=== PATIENT | female | born 1975 | race Caucasian/White ===

== ENCOUNTER 2022-08-07 22:52 | Outpatient (CLI) | payer OTHER, SELFPAY | END 2022-08-07 22:53 | disposition home or self-care (01) | LOC: AMB 08-10 11:18 | PROVIDERS: Visit Provider Family Medicine | DX: R45.851 Suicidal ideations (principal) | CPT/HCPCS: A0425; A0433 ==

== ENCOUNTER 2022-10-27 16:35 | Emergency (ER) | payer OTHER, SELFPAY ==
[2022-10-27 16:40] VITALS: BP 155/80; PULSE 59; RESP 22; TEMP 36.6; O2SAT 100; BMI 22.3
--- NOTE | 2022-10-27 17:02 | CRLHL7_ITS ---
For Patients: As a result of the Century Cures Act, medical imaging exams and procedure reports are released immediately into your electronic medical record. You may view this report before your referring provider. If you have questions, please contact your health care provider. INDICATION: RLQ PAIN. TECHNIQUE: CT abdomen and pelvis acquired with 58 cc Isovue 370 IV contrast. COMPARISON: None. FINDINGS: Lower chest: Unremarkable. Liver: Unremarkable. Normal in size and attenuation. No suspicious masses. Gallbladder and bile ducts: Unremarkable. No stones or inflammation. No biliary dilatation. Pancreas: Subtle hypodensity near the head of the pancreas, nonspecific (6/34; 2/38).. Spleen: Unremarkable. Normal in size. No masses. Adrenal glands: Unremarkable. No nodules. Kidneys: Unremarkable. No suspicious masses, stones, or hydronephrosis. GI tract: Unremarkable. Normal in caliber. No sign of mass or inflammation. Normal appendix. Vasculature: Abdominal aorta is normal in caliber. Mesenteric arteries are patent. Lymph nodes: No lymphadenopathy. Peritoneum/Abdominal Wall: Small fluid within the pelvis, nonspecific. No intra-abdominal free air. Pelvis: Status post hysterectomy. Bones: Unremarkable for age. IMPRESSION: No acute intra-abdominal process identified. Trace fluid in the pelvis, nonspecific. Subtle hypodensity near the head of the pancreas. Recommend further evaluation with nonemergent abdominal MRI, pancreas protocol. Please note that all CT scans at this facility use dose modulation, iterative reconstruction, and/or weight-based dosing when appropriate to reduce radiation dose to as low as reasonably achievable. Dictated by Julio Cesar Suazo MD @ 10/27/2022 8:06:18 PM ----- ADDENDUM ----- Addendum: Upon secondary review, there is a 6 mm stone at the mid to distal right ureter with minimal upstream hydroureter and hydronephrosis. Dictated by Julio Cesar Suazo MD @ Nov 01 2022 7:12PM (Electronically Signed)
--- NOTE | 2022-10-27 17:03 | ED.ABDPAIN ---
HPI - Abdominal Pain General Chief Complaint: Abdominal Pain Stated Complaint: Lower R abdominal pain Time Seen by Provider: 10/27/22 16:41 History of Present Illness HPI narrative: This 47-year-old female comes in reporting right lower quadrant abdominal pain for the past 3 days. She states that it is a constant pain but there are some episodes where it gets more intense. She has not had any fevers, nausea, vomiting, or loss of appetite. She wondered if she might be constipated so she took a stool laxative and has had 3 episodes of diarrhea since then. Related Data Home Medications Medication Instructions Recorded Confirmed bupropion HCl 150 mg 24 hr tablet, 150 mg PO QAM 10/27/22 10/27/22 extended release trazodone 100 mg tablet 200 mg PO QPM PRN 10/27/22 10/27/22 Allergies Allergy/AdvReac Type Severity Reaction Status Date / Time cyclobenzaprine Allergy Intermediate Muscle Verified 10/27/22 16:25 [From Flexeril] twitching oxycodone Allergy Mild Itchy skin Verified 10/27/22 16:25 Review of Systems Status of ROS Reports: 10 or more systems reviewed and unremarkable except as noted in History and below Narrative Constitutional: No fevers, no weight gain or loss. Eyes: No discharge. No vision changes. HENT: No congestion, no sore throat, no ear pain. Cardiovascular: No chest pain, no palpitations. Respiratory: No shortness of breath, no wheezes, no cough. Gastrointestinal: No vomiting, no diarrhea. Right lower quadrant abdominal pain as described above. Genitourinary: No dysuria, no hematuria. Musculoskeletal: Normal range of motion. Skin: No rashes, no pruritis. Neurological: No dizziness, weakness, sensory change, speech change. Endo/Heme/Allergies: No bruising or bleeding. No polydipsia. Pysch: no suicidality, no anxiety, no insomnia. All other systems reviewed and are negative. PFSH PFSH Social History Smoking Status: Never smoker Do you use any of these nicotine containing products: None How often do you have a drink containing alcohol: monthly or less How often do you have six or more drinks on one occasion: Never AUDIT-C Alcohol total score: 1 Non-prescribed substance use: denies use service: No Exam Narrative: Exam Narrative: Constitutional: Well-developed, well-nourished, no acute distress. HEENT: Normocephalic, atraumatic. Neck: Normal range of motion. Nontender. Supple. Heart: Regular. No murmurs. Normal rate. Intact distal pulses. Lungs: Clear to auscultation. No chest discomfort. No wheezes, rhonchi, or rales. Abdomen: Normal bowel sounds. Tenderness at McBurney's point in the right lower quadrant. Rovsing sign is positive. There is some rebound tenderness. Genitalia: Deferred. Back: No midline tenderness. Normal range of motion. Extremities: Normal range of motion. No injury. Skin: Intact. No rash. Warm. No erythema or pallor. Neurologic: No altered sensation. No weakness. Alert and oriented. Psychiatric: No suicidality. No anxiety or depression. No insomnia. Nursing notes and vitals signs are reviewed. Const: Vital Signs, click to edit/add: Vital Signs - 24 hr 10/27/22 16:40 10/27/22 18:55 Temperature 97.8 F Pulse Rate [Right Pulse Oximeter] 59 L 65 Respiratory Rate 22 Blood Pressure [Ri ght Upper Arm] 155/80 H 131/84 Pulse Oximetry 100 100 Oxygen Delivery Me thod Room Air Room Air Course Vital Signs Vital signs: Initial Vital Signs Temperature 97.8 F 10/27/22 16:40 Temperature Source Temporal Artery Scan 10/27/22 16:40 Pulse Rate 59 L 10/27/22 16:40 Pulse Rhythm Regular 10/27/22 16:40 Respiratory Rate 22 10/27/22 16:40 Blood Pressure 155/80 H 10/27/22 16:40 Blood Pressure Mean 105 10/27/22 16:40 Pulse Oximetry 100 10/27/22 16:40 Oxygen Delivery Method Room Air 10/27/22 16:40 Vital Signs Temperature 97.8 F 10/27/22 16:40 Pulse Rate 59 L 10/27/22 16:40 Respiratory Rate 22 10/27/22 16:40 Blood Pressure 155/80 H 10/27/22 16:40 Pulse Oximetry 100 10/27/22 16:40 Oxygen Delivery Method Room Air 10/27/22 16:40 Temperature 97.8 F 10/27/22 16:40 Pulse Rate 65 10/27/22 18:55 Respiratory Rate 22 10/27/22 18:55 Blood Pressure 131/84 10/27/22 18:55 Pulse Oximetry 100 10/27/22 18:55 Oxygen Delivery Method Room Air 10/27/22 18:55 MDM - Abdominal Pain MDM Narrative Medical decision making narrative: This 47-year-old female comes in reporting pain in her right lower quadrant over these past 3 days. She states that the pain comes and goes and at times becomes very intense but never completely goes away. An IV was established where labs were drawn and contrast was administered for a CT scan of the abdomen and pelvis. CT images returned with no acute findings to explain the patient's pain. Additionally lab results are all within normal limits. I did describe various causes for abdominal pain that would not be identified on CT imaging or with lab results. She states that she has had an ovarian cyst long time in the past. There is no sign of ovarian cyst today but there is some free fluid in the cul-de-sac but this could be normal physiologic levels. This patient is okay to return home. She did receive IV doses of Dilaudid 0.5 mg and Zofran 4 mg. Prescriptions are provided also for Toradol, Zofran, and a few tablets of [place]. She is advised to follow-up with her primary physician or OBGYN clinic or Gastroenterology Clinic if not improving or return if worsening. Lab Data Labs: Lab Results 10/27/22 Range/Units 17:23 WBC 4.59 (4.50-11.00) K/uL RBC 4.18 (4.00-5.20) m/uL Hgb 12.2 (12.0-16.0) gm/dL Hct 36.9 (33.0-51.0) % MCV 88 (80-100) fL MCH 29 (26-34) pg MCHC 33 (32-36) gm/dL RDW Coeff of Denny 12.7 (11.5-15.5) % Plt Count 190 (140-440) K/uL Neut % (Auto) 47.5 (42.0-72.0) % Lymph % (Auto) 41.2 (20-44) % [place] % (Auto) 9.4 (0.0-11.0) % Eos % (Auto) 1.5 (0.0-7.0) % Baso % (Auto) 0.4 (0.0-3.0) % Neut # (Auto) 2.18 (1.7-7.0) K/uL Lymph # (Auto) 1.89 (0.90-2.90) K/uL [place] # (Auto) 0.40 (0.00-0.90) K/UL Eos # (Auto) 0.07 (0.00-0.50) K/uL Baso # (Auto) 0.02 (0.00-0.30) K/uL Abs Immat Gran (auto) 0.00 (0.00-0.30) K/uL Imm/Tot Granulo (auto) 0.0 % Sodium 137 (135-149) mmol/L Potassium 4.2 (3.6-5.1) mmol/L Chloride 103 (96-114) mmol/L Carbon Dioxide 27 (20-32) mmol/L Anion Gap 7 (7-15) mEq/L BUN 16 (5-24) mg/dL Creatinine 0.8 (0.5-1.5) mg/dL Estimated Creat Clear 64.19 Estimated GFR 90 ml/min Glucose 70 (60-115) mg/dL Calcium 9.3 (8.4-10.6) mg/dL Imaging Data CT scan - abdomen: Radiologist's impression: No acute intra-abdominal process identified. Trace fluid in the pelvis, nonspecific. Subtle hypodensity near the head of the pancreas. Recommend further evaluation with nonemergent abdominal MRI, pancreas protocol. Discharge Plan Discharge Clinical Impression: Abdominal pain Patient Disposition: Home, Self-Care Condition: Stable Additional Instructions: Take medication as prescribed and needed. Follow-up with primary physician, OBGYN Clinic, or lasting floorworker if symptoms are persistent. Return if worsening. Prescriptions: No Action trazodone 100 mg tablet 200 mg PO QPM PRN bupropion HCl 150 mg tablet extended release 24 hr 150 mg PO QAM Follow Up/Referrals: Provider,Not a Local [Referring] - Stand Alone Forms: Taskmit Info Instructions
[2022-10-27 17:37] LABS: Basophils Absolute Auto 0.02 K/uL (0.00-0.30); Basophils Percent Auto 0.4 % (0.0-3.0); Eosinophils Absolute Auto 0.07 K/uL (0.00-0.50); Eosinophils Percent Auto 1.5 % (0.0-7.0); Hematocrit 36.9 % (33.0-51.0); Hemoglobin* 12.2 gm/dL (12.0-16.0); Lymphocytes Absolute Auto 1.89 K/uL (0.90-2.90); Lymphocytes Percent Auto 41.2 % (20-44); Mean Corpuscular HGB Conc 33 gm/dL (32-36); Mean Corpuscular Hemoglobin 29 pg (26-34); Mean Corpuscular Volume 88 fL (80-100); Monocytes Percent Auto 9.4 % (0.0-11.0); Neutrophils Absolute Auto 2.18 K/uL (1.7-7.0); Neutrophils Percent Auto 47.5 % (42.0-72.0); Platelet Count* 190 K/uL (140-440); RDW Coefficient of Variation % 12.7 % (11.5-15.5); Red Blood Count 4.18 m/uL (4.00-5.20); White Blood Count* 4.59 K/uL (4.50-11.00)
[2022-10-27 17:41] LABS: Slide Review Reflex No
[2022-10-27] MEDS: KETOROLAC 15 MG/ML inj IVP (17:50)
[2022-10-27 17:55] LABS: Chloride* 103 mmol/L (96-114); Potassium* 4.2 mmol/L (3.6-5.1); Sodium* 137 mmol/L (135-149)
[2022-10-27 17:58] LABS: Anion Gap 7 mEq/L (7-15); Blood Urea Nitrogen* 16 mg/dL (5-24); Carbon Dioxide* 27 mmol/L (20-32); Creatinine* 0.8 mg/dL (0.5-1.5); Est. Creatinine Clearance* 64.19; Estimated Glomerular Filt Rate 90 ml/min
[2022-10-27 17:59] LABS: Calcium* 9.3 mg/dL (8.4-10.6); Glucose* 70 mg/dL (60-115)
[2022-10-27 18:55] VITALS: BP 131/84; PULSE 65; RESP 22; O2SAT 100
--- NOTE | 2022-10-27 19:44 | ED.NURSE ---
Per pt pain is tolerable, says pain is still coming and going in waves.
--- NOTE | 2022-10-27 20:18 | ED.NURSE ---
Pt report given off to oncoming RN.
[2022-10-27] MEDS: HYDROmorphone 0.5 mg/0.5 ml inj IVP (20:47)
[2022-10-27] MEDS: ONDANSETRON 2 MG/ML inj 4 MG IVP (20:47)
[2022-10-27 21:10] VITALS: BP 122/76; PULSE 71; RESP 16; TEMP 36.6
== END 2022-10-27 21:10 | disposition home or self-care (01) ==
PROVIDERS: Emergency Provider Emergency Medicine Emergency Medical Services; PCP Physician Assistant
DX: R10.9 Unspecified abdominal pain (principal)
CPT/HCPCS: 36415; 74177; 80048; 85025; 96374; 96375; 99284; 99285; J1170; J1885; J2405; Q9967

== ENCOUNTER 2022-11-01 17:45 | Emergency (ER) | payer OTHER, SELFPAY ==
[2022-11-01 17:50] VITALS: BP 120/65; PULSE 66; RESP 18; TEMP 36.5; O2SAT 100; BMI 22.3
--- NOTE | 2022-11-01 18:04 | ED.ABDPAIN ---
HPI - Abdominal Pain General Time Seen by Provider: 18:04 Date Seen: 11/01/22 Chief Complaint: Abdominal Pain Stated Complaint: Lower abdomen pain Time Seen by Provider: 11/01/22 17:55 Source: patient, RN notes reviewed and old records reviewed Mode of arrival: ambulatory Limitations: no limitations History of Present Illness HPI narrative: Patient in on day 8 of RLQ abdominal pain. Pain is there constantly, starting to have shooting pain into groin into top of leg on right. Before would get some sharp jolts into right hip area laterally from the abdominal area where pain was. If pain severe, may feel some nausea. No vomiting, decreased appetite but eating doesn't increase symptoms. Did try clean out with Miralax and did not help, doesn't have any concerning changes with bowels at this time. Had appropriate loose stools 3 times with the Miralax. No fevers. No urinary symptoms. Has had ovarian cyst before. Saw GI this past Sunday, no EGD felt necessary as not any upper abd symptoms or reflux type symptoms. GI doctor ordered gallbladder US but isn't until next week. Pain does radiate over the left side too now at times. Has used OTC meds, norco for pain, toradol and zofran. Sleeping OK but notes that she uses trazodone to sleep. Had colonoscopy 2 years ago, wondering if that should be repeated but GI doctor didn't feel it needed to be at this point per patient. She reports that she has had urinary infections and kidney infections without symptoms before. She was in our ED on October 27, had normal blood work and CT at that time. Did review patient's blood work and CT imaging report from her last visit. She states she was not aware of the subtle density of the pancreas, did give her report to give to her primary care provider. Will make sure pancreatic enzymes are normal tonight but she really should have follow-up MRI pancreatic protocol. MD elicited complaint: abdominal pain Related Data Patient : No Home Medications Medication Instructions Recorded Confirmed bupropion HCl 150 mg 24 hr tablet, 150 mg PO QAM 10/27/22 10/27/22 extended release trazodone 100 mg tablet 200 mg PO QPM PRN 10/27/22 10/27/22 Previous Rx's Medication Instructions Recorded oxycodone 5 mg tablet 5 - 10 mg (1 - 2 x 5 mg) PO Q6H 11/01/22 PRN pain #20 tabs tamsulosin 0.4 mg capsule (Flomax) 0.4 mg PO DAILY #14 caps 11/01/22 Allergies Allergy/AdvReac Type Severity Reaction Status Date / Time cyclobenzaprine Allergy Intermediate Muscle Verified 10/27/22 16:25 [From Flexeril] twitching oxycodone Allergy Mild Itchy skin Verified 10/27/22 16:25 Review of Systems Status of ROS Reports: 6 or more systems reviewed and unremarkable except as noted in History and below [facility] Social History Smoking Status: Never smoker Do you use any of these nicotine containing products: None How often do you have a drink containing alcohol: monthly or less How often do you have six or more drinks on one occasion: Never AUDIT-C Alcohol total score: 1 Non-prescribed substance use: denies use service: No Exam Const: Vital Signs, click to edit/add: Vital Signs - 24 hr 11/01/22 17:50 Temperature 97.7 F Pulse Rate [Right Pulse Oximeter] 66 Respiratory Rate 18 Blood Pressure [Ri ght Upper Arm] 120/65 Pulse Oximetry 100 Oxygen Delivery Me thod Room Air Very pleasant 47-year-old female that is alert, interactive, no apparent distress. Slender build. Pupils equal round, conjugate gaze, sclera clear. Face atraumatic. Oropharynx mucosa no exudates erythema. TMs canals are normal. Neck is supple, no palpable masses, no thyromegaly masses or nodules. Sits up easily, lungs are clear with good air entry, no wheezing or crackles, no accessory muscle use. CV regular rate and rhythm, no murmur, normal S1 and S2. Abdomen is flat, not distended. Bowel sounds are active but not concerning. There is no organomegaly or masses noted. She feels pain in the right lower quadrant when I palpate in the right mid abdomen and the left lower quadrant. She is tender in the right lower quadrant without any palpable mass. She just slough lightly above the pelvic area just over from the iliac crest where the pain is the worst. She really does not have rebound or guarding with this though. No lower extremity edema, skin visualized without rash. Patient is ambulatory in the ED of her own accord. Documenting provider has reviewed patient's vital signs: yes Course Course ED Course: Reviewed with patient that she really absolutely is not tender over the gallbladder right upper quadrant with the gallbladder is. She is tender in her right lower quadrant, she has been evaluated in the ER before and had a negative CT. Do think that I would do a pelvic ultrasound to assess the ovaries and pelvic structures which are better imaged with ultrasound and CT. We will redo a full complement of labs, will obtain urinalysis. She states urinalysis is not been done yet. Reevaluation(s) Time of Reevaluation #1: 19:24 Reevaluation #1: Below is the addended CT report which shows kidney stone. Patient: EMILY SANDRA Facility:?[facility] Patient ID:?[id number] Site Patient ID:?[id number]. Site :?[id number] Study:?CT-Abdomen/Pelvis W ISOVUE 370-10/27/2022 6:49:36 PM Ordering Physician:?Denny Nichols Final Report: INDICATION: RLQ PAIN. TECHNIQUE: CT abdomen and pelvis acquired with 58 cc Isovue 370 IV contrast. COMPARISON: None. FINDINGS: Lower chest: Unremarkable. Liver: Unremarkable. Normal in size and attenuation. No suspicious masses. Gallbladder and bile ducts: Unremarkable. No stones or inflammation. No biliary dilatation. Pancreas: Subtle hypodensity near the head of the pancreas, nonspecific (6/34; 2/38).. Spleen: Unremarkable. Normal in size. No masses. Adrenal glands: Unremarkable. No nodules. Kidneys: Unremarkable. No suspicious masses, stones, or hydronephrosis. GI tract: Unremarkable. Normal in caliber. No sign of mass or inflammation. Normal appendix. Vasculature: Abdominal aorta is normal in caliber. Mesenteric arteries are patent. Lymph nodes: No lymphadenopathy. Peritoneum/Abdominal Wall: Small fluid within the pelvis, nonspecific. No intra-abdominal free air. Pelvis: Status post hysterectomy. Bones: Unremarkable for age. IMPRESSION: No acute intra-abdominal process identified. Trace fluid in the pelvis, nonspecific. Subtle hypodensity near the head of the pancreas. Recommend further evaluation with nonemergent abdominal MRI, pancreas protocol. Please note that all CT scans at this facility use dose modulation, iterative reconstruction, and/or weight-based dosing when appropriate to reduce radiation dose to as low as reasonably achievable. Dictated by Julio Cesar Suazo MD @ 10/27/2022 8:06:18 PM ----- ADDENDUM ----- Addendum: Upon secondary review, there is a 6 mm stone at the mid to distal right ureter with minimal upstream hydroureter and hydronephrosis. Dictated by Julio Cesar Suazo MD @ Nov 01 2022 7:12PM Signed by:?Julio Cesar Suazo MD @10/27/2022 8:06:18 PM (Electronic Signature) Patient is provided the information that there is a kidney stone. Will try to talk to Urology on patient's behalf so she can get a follow-up. Will give her a dose of Flomax now. Reviewed with her that literature supports about 60% passage of stones in the 4-6 mm range. Time of Reevaluation #2: 20:09 Reevaluation #2: Have reviewed conversation with urology with Emily. Will make sure she has a disc to take to the appointment. Her pain has not been very well controlled with 1 single oxycodone. She does get some occasional itching but no rash. Reviewed with her that she could try Claritin or Zyrtec to block the histamine reaction while on this. I am going to give her 2 oxycodone now. Will send in another prescription for her to try to get her through to her urology appointment. She has talked to her sister in the interim, her sister reminded her that her mom had kidney stones. Consultations Consultation #1: Preliminary report from the community services manager is that the ovaries and pelvic ultrasound is looking normal. We did pull up her CT from October 27, visualize the images. I do think I see a large stone that potentially is in the right lower quadrant that may explain her pain. Interestingly her urine showed 10-25 red cells and is not infected. When the community services manager came into let me know that the pelvic imaging looked normal, she and I did look at the CT together. She is going to contact [facility] and have the CT from October 27 re-evaluated. Time: 19:07 Consultation #2: Spoke with Dr. Velazquez in Urology, on-call for [place]. He took the patient's information on her phone number, he will have someone contact her for outpatient urology follow-up tomorrow. Time: 20:04 Vital Signs Vital signs: Initial Vital Signs Temperature 97.7 F 11/01/22 17:50 Temperature Source Temporal Artery Scan 11/01/22 17:50 Pulse Rate 66 11/01/22 17:50 Respiratory Rate 18 11/01/22 17:50 Blood Pressure 120/65 11/01/22 17:50 Blood Pressure Mean 83 11/01/22 17:50 Blood Pressure Position Sitting 11/01/22 17:50 Pulse Oximetry 100 11/01/22 17:50 Oxygen Delivery Method Room Air 11/01/22 17:50 Vital Signs Temperature 97.7 F 11/01/22 17:50 Pulse Rate 66 11/01/22 17:50 Respiratory Rate 18 11/01/22 17:50 Blood Pressure 120/65 11/01/22 17:50 Pulse Oximetry 100 11/01/22 17:50 Oxygen Delivery Method Room Air 11/01/22 17:50 Temperature 97.7 F 11/01/22 17:50 Pulse Rate 66 11/01/22 17:50 Respiratory Rate 18 11/01/22 17:50 Blood Pressure 120/65 11/01/22 17:50 Pulse Oximetry 100 11/01/22 17:50 Oxygen Delivery Method Room Air 11/01/22 17:50 MDM - Abdominal Pain Lab Data Attestation: I reviewed the patient's lab results. Labs: Lab Results 11/01/22 11/01/22 11/01/22 Range/Units 18:30 18:30 18:30 WBC 5.86 (4.50-11.00) K/uL RBC 4.64 (4.00-5.20) m/uL Hgb 13.8 (12.0-16.0) gm/dL Hct 40.6 (33.0-51.0) % MCV 88 (80-100) fL MCH 30 (26-34) pg MCHC 34 (32-36) gm/dL RDW Coeff of Denny 12.9 (11.5-15.5) % Plt Count 214 (140-440) K/uL Neut % (Auto) 52.0 (42.0-72.0) % Lymph % (Auto) 37.9 (20-44) % [place] % (Auto) 8.4 (0.0-11.0) % Eos % (Auto) 1.2 (0.0-7.0) % Baso % (Auto) 0.3 (0.0-3.0) % Neut # (Auto) 3.05 (1.7-7.0) K/uL Lymph # (Auto) 2.22 (0.90-2.90) K/uL [place] # (Auto) 0.50 (0.00-0.90) K/UL Eos # (Auto) 0.07 (0.00-0.50) K/uL Baso # (Auto) 0.02 (0.00-0.30) K/uL Abs Immat Gran (auto) 0.01 (0.00-0.30) K/uL Imm/Tot Granulo (auto) 0.2 % Sodium 137 (135-149) mmol/L Potassium 4.6 (3.6-5.1) mmol/L Chloride 101 (96-114) mmol/L Carbon Dioxide 27 (20-32) mmol/L Anion Gap 9 (7-15) mEq/L BUN 18 (5-24) mg/dL Creatinine 1.0 (0.5-1.5) mg/dL Estimated Creat Clear 51.35 Estimated GFR 69 ml/min Glucose 78 (60-115) mg/dL Lactate 1.3 (0.5-1.9) mmol/L Calcium 10.5 (8.4-10.6) mg/dL Total Bilirubin 0.7 (0.1-1.5) mg/dL AST 36 H (12-35) U/L ALT 21 (4-35) U/L Alkaline Phosphatase 58 (40-150) U/L C-Reactive Protein 0.5 (0.5-1.0) mg/dL Total Protein 8.4 H (6.0-8.3) g/dL Albumin 5.0 (3.3-5.0) g/dL Amylase 106 H Cancelled (18-89) U/L Lipase 84 Cancelled (23-300) U/L Urine Color Yellow (Yellow) Urine Appearance Clear (Clear) Urine pH 6.0 (5.0-8.5) Ur Specific [place] 1.025 (1.000-1.030) Urine Protein Negative (Negative) Urine Glucose (UA) Negative (Negative) Urine Ketones Trace A (Negative) Urine Blood 3+ A (Negative) Urine Nitrite Negative (Negative) Urine Bilirubin Negative (Negative) Urine Urobilinogen 0.2 (0.2-1.0) Ur Leukocyte Esterase Negative (Negative) Urine RBC 10-25 A (0-2) Urine WBC 0-2 (0-5) Ur Squamous Epith Cells Few (None-Few) Urine Bacteria Few A (None) Imaging Data US pelvis: Attestation: I have reviewed the pertinent imaging results. Radiologist's impression: Patient: EMILY SANDRA Facility:?[facility] Patient ID:?[id number] Site Patient ID:?[id number]. Site :?[id number] Study:?US Pelvis PELVIS TV-11/01/2022 7:27:03 PM Ordering Physician:Polina Crews Final Report: INDICATION: Right lower quadrant abdominal pain. TECHNIQUE: Ultrasound pelvis transvaginal. Real-time sonographic images with spectral and color Doppler imaging of the ovaries were obtained. COMPARISON: CT abdomen and pelvis 10/27/2022. FINDINGS: Uterus: Surgically absent. Right ovary measures 2.9 x 1.4 x 1.9 cm. Left ovary measures 3.2 x 1.8 x 2.2 cm. No ovarian or adnexal masses. Normal arterial and venous blood flow is demonstrated in both ovaries. Cul-de-sac: No significant free fluid. IMPRESSION: Status post hysterectomy. Normal ovaries. No evidence for torsion or adnexal mass. Dictated by Vinny Darden MD @ 11/01/2022 7:47:19 PM (Electronic Signature) Critical Care Time Critical Care Time Critical Care Time: No Discharge Plan Discharge Clinical Impression: Kidney stone on right side Patient Disposition: Home, Self-Care Condition: Stable Instructions: Kidney Stones (ED), Renal Colic (ED) Additional Instructions: Baseline take Tylenol 1000 mg 3 times a day. Also recommend ibuprofen 600 mg up to 4 times a day. Take Flomax daily until either the stone has passed or the urologist recommends you stop. Further prescription for oxycodone is going to be given as you do have a 6 mm kidney stone. It is important to drink adequate fluids, goal is to have your urine clear looking. Try taking Claritin or Zyrtec once to twice daily to block the histamine release in the itching that you sometimes get with the oxycodone. I have prescribed oxycodone for more severe pain, follow-up prescription instructions. This can be constipating, may need to use MiraLax and or senna to prevent this. You should expect a phone call from [place] [facility], Dr. Velazquez's office, tomorrow to be scheduled for outpatient follow-up. In the meantime, if you develop severe pain, have vomiting and are unable to take in oral medicines or fluids, develops fever with this, need emergent re-evaluation. Activity Level: No Restrictions and Activity as Tolerated Prescriptions: New tamsulosin [Flomax] 0.4 mg capsule 0.4 mg PO DAILY Qty: 14 0RF oxycodone 5 mg tablet 5 - 10 mg PO Q6H PRN (Reason: pain) Qty: 20 0RF No Action trazodone 100 mg tablet 200 mg PO QPM PRN bupropion HCl 150 mg tablet extended release 24 hr 150 mg PO QAM Follow Up/Referrals: Florinda Palmer PA-C [Primary Care Provider] - Stand Alone Forms: [employer] Info Instructions
--- NOTE | 2022-11-01 18:15 | CRLHL7_ITS ---
For Patients: As a result of the Century Cures Act, medical imaging exams and procedure reports are released immediately into your electronic medical record. You may view this report before your referring provider. If you have questions, please contact your health care provider. INDICATION: Right lower quadrant abdominal pain. TECHNIQUE: Ultrasound pelvis transvaginal. Real-time sonographic images with spectral and color Doppler imaging of the ovaries were obtained. COMPARISON: CT abdomen and pelvis 10/27/2022. FINDINGS: Uterus: Surgically absent. Right ovary measures 2.9 x 1.4 x 1.9 cm. Left ovary measures 3.2 x 1.8 x 2.2 cm. No ovarian or adnexal masses. Normal arterial and venous blood flow is demonstrated in both ovaries. Cul-de-sac: No significant free fluid. IMPRESSION: Status post hysterectomy. Normal ovaries. No evidence for torsion or adnexal mass. Dictated by Vinny Darden MD @ 11/01/2022 7:47:19 PM (Electronically Signed)
[2022-11-01 18:37] LABS: Lactate* 1.3 mmol/L (0.5-1.9)
[2022-11-01 18:39] LABS: Appearance Urine Clear (Clear); Basophils Absolute Auto 0.02 K/uL (0.00-0.30); Basophils Percent Auto 0.3 % (0.0-3.0); Bilirubin Urine Negative (Negative); Blood Urine 3+ (Negative); Color Urine Yellow (Yellow); Eosinophils Absolute Auto 0.07 K/uL (0.00-0.50); Eosinophils Percent Auto 1.2 % (0.0-7.0); Glucose Urine Negative (Negative); Hematocrit 40.6 % (33.0-51.0); Hemoglobin* 13.8 gm/dL (12.0-16.0); Immature Granulocytes Abs Auto 0.01 K/uL (0.00-0.30); Immature Granulocytes Pct Auto 0.2 %; Ketones Urine Trace (Negative); Leukocyte Esterase Urine Negative (Negative); Lymphocytes Absolute Auto 2.22 K/uL (0.90-2.90); Lymphocytes Percent Auto 37.9 % (20-44); Mean Corpuscular HGB Conc 34 gm/dL (32-36); Mean Corpuscular Hemoglobin 30 pg (26-34); Mean Corpuscular Volume 88 fL (80-100); Monocytes Percent Auto 8.4 % (0.0-11.0); Neutrophils Absolute Auto 3.05 K/uL (1.7-7.0); Nitrite Urine Negative (Negative); Platelet Count* 214 K/uL (140-440); Protein Urine Negative (Negative); RDW Coefficient of Variation % 12.9 % (11.5-15.5); Red Blood Count 4.64 m/uL (4.00-5.20); Specific Gravity Urine 1.025 (1.000-1.030); Urobilinogen Urine 0.2 (0.2-1.0); White Blood Count* 5.86 K/uL (4.50-11.00)
[2022-11-01 18:41] LABS: Slide Review Reflex No
[2022-11-01 18:54] LABS: Bacteria Urine Few; Squamous Epithelial Cell Urine Few (None-Few); WBC Urine 0-2 (0-5)
[2022-11-01 18:58] LABS: Chloride* 101 mmol/L (96-114); Sodium* 137 mmol/L (135-149)
[2022-11-01 18:59] LABS: Potassium* 4.6 mmol/L (3.6-5.1)
[2022-11-01 19:00] VITALS: O2SAT 99
[2022-11-01 19:00] LABS: Amylase* 106 U/L (18-89)
[2022-11-01 19:01] LABS: Alkaline Phosphatase* 58 U/L (40-150); Anion Gap 9 mEq/L (7-15); Aspartate Amino Transferase* 36 U/L (12-35); Bilirubin Total* 0.7 mg/dL (0.1-1.5); Blood Urea Nitrogen* 18 mg/dL (5-24); Carbon Dioxide* 27 mmol/L (20-32); Est. Creatinine Clearance* 51.35; Estimated Glomerular Filt Rate 69 ml/min; Glucose* 78 mg/dL (60-115); Lipase* 84 U/L (23-300); Total Protein* 8.4 g/dL (6.0-8.3)
[2022-11-01 19:02] LABS: Alanine Aminotransferase* 21 U/L (4-35); Calcium* 10.5 mg/dL (8.4-10.6)
[2022-11-01 19:04] LABS: C Reactive Protein* 0.5 mg/dL (0.5-1.0)
[2022-11-01] MEDS: TAMSULOSIN HCL 0.4 MG CAPSULE PO (19:36)
--- NOTE | 2022-11-01 19:55 | ED.NURSE ---
Given report to Michael GREEN who will resume care of this patient.
[2022-11-01] MEDS: OXYCODONE 5 MG TABLET 10 MG PO (20:14)
[2022-11-01 20:26] VITALS: BP 137/85; PULSE 55; RESP 14; O2SAT 100
[2022-11-01 20:32] VITALS: BP 137/85; PULSE 55; RESP 14; TEMP 36.5
== END 2022-11-01 20:32 | disposition home or self-care (01) ==
PROVIDERS: Emergency Provider Family Medicine; PCP Physician Assistant
DX: N20.0 Calculus of kidney (principal)
CPT/HCPCS: 36415; 76830; 80053; 81001; 82150; 83605; 83690; 85025; 86140; 87086; 93976; 94761; 99284; A9270

== ENCOUNTER 2023-01-22 15:45 | Outpatient (CLI) | payer OTHER, SELFPAY ==
--- NOTE | 2023-01-22 16:00 | CRLHL7_ITS ---
For Patients: As a result of the Century Cures Act, medical imaging exams and procedure reports are released immediately into your electronic medical record. You may view this report before your referring provider. If you have questions, please contact your health care provider. INDICATION: Abdominal pain COMPARISON: 10/27/2022 CT, 11/10/2022 MRI TECHNIQUE: Real time vergara scale imaging and color Doppler analysis was performed of the right upper quadrant. FINDINGS: There are 3 hyperechoic structures within the liver measuring 1.4 x 0.9 x 1.0 cm, 0.9 x 0.7 x 0.9 cm and 1.3 x 0.9 x 1.2 cm, consistent with benign hemangiomas. There is a normal appearance of the hepatic IVC and proximal abdominal aorta. There is no evidence of ascites. The gallbladder is of normal size and echogenic foci are present within the gallbladder lumen along with mild layering debris. The gallbladder wall measures 2 mm in thickness. The common bile duct is of normal size and measures 4 mm in diameter at the level of the anne marie hepatis. The pancreas appears normal. There is no evidence of a stone or hydronephrosis within the right kidney. The right kidney measures 8.8 cm in length. IMPRESSION: Cholesterol stones and sludge within the gallbladder lumen without biliary obstruction consistent with cholelithiasis. Incidental benign intrahepatic hemangiomas. Normal pancreas. Dictated by Kristian Talavera MD @ 01/25/2023 11:53:44 AM (Electronically Signed)
== END 2023-01-22 15:46 | disposition home or self-care (01) ==
LOC: US 15:45
PROVIDERS: PCP Family Medicine; Visit Provider Internal Medicine Gastroenterology
DX: R10.11 Right upper quadrant pain (principal); K80.20 Calculus of gallbladder without cholecystitis without obstruction; D18.09 Hemangioma of other sites
CPT/HCPCS: 76705

== ENCOUNTER 2025-01-14 10:08 | Outpatient (CLI) | payer OTHER, SELFPAY ==
--- NOTE | 2025-01-14 10:15 | CRLHL7_ITS ---
For Patients: As a result of the Century Cures Act, medical imaging exams and procedure reports are released immediately into your electronic medical record. You may view this report before your referring provider. If you have questions, please contact your health care provider. INDICATION 49-year-old female. Globus sensation. Dysphagia. TECHNIQUE Recorded video swallow performed in conjunction with speech therapy. FINDINGS The patient tolerated all preparations of barium well. There was no evidence for aspiration or penetration. No hold-up of barium. No evidence for a Zenker`s diverticulum. Brief evaluation of the patient in the AP projection again demonstrates a normal recorded video swallow. 1 minute 59 seconds fluoroscopy time utilized. IMPRESSION 1. Normal recorded video swallow. 2. The patient did ingest a 13 mm diameter radiodense tablet toward the end of the examination which passed readily into the stomach. 3. Please see detailed notes from speech therapy. TAE XIE M.D. Diagnostic/Nuclear Medicine Radiologist [email or web address] JMN:[email or web address]/Dictated by: Tae Xie MD @ 01/14/2025 1:05:00 PM (Electronically Signed)
== END 2025-01-14 10:09 | disposition home or self-care (01) ==
LOC: RAD 10:10
PROVIDERS: PCP Physician Assistant; Visit Provider Otolaryngology Otolaryngology/Facial Plastic Surgery
DX: R13.10 Dysphagia, unspecified (principal)
CPT/HCPCS: 74230

== ENCOUNTER 2025-01-19 10:07 | Outpatient (CLI) | payer OTHER, SELFPAY ==
--- NOTE | 2025-01-19 10:15 | CRLHL7_ITS ---
For Patients: As a result of the Century Cures Act, medical imaging exams and procedure reports are released immediately into your electronic medical record. You may view this report before your referring provider. If you have questions, please contact your health care provider. Technique: Double-contrast esophagram performed after the uneventful administration of effervescent crystals and thick barium. Fluoroscopy time 54 seconds. Indication: Dysphagia Comparison: Video swallow study 01/14/2025 Findings: Esophagus: Normal morphology and motility. No stricture or mass. Gastroesophageal reflux: Mild reflux noted. Impression: Mild gastroesophageal reflux. Remainder unremarkable. Dictated by Kristian Talavera MD @ 01/19/2025 11:59:40 AM (Electronically Signed)
== END 2025-01-19 10:08 | disposition home or self-care (01) ==
PROVIDERS: PCP Physician Assistant; Visit Provider Otolaryngology Otolaryngology/Facial Plastic Surgery
DX: R13.10 Dysphagia, unspecified (principal); K21.9 Gastro-esophageal reflux disease without esophagitis
CPT/HCPCS: 74221; 92611